=== PATIENT | male | born 1990 | race Caucasian/White ===

== ENCOUNTER 2022-11-20 18:29 | Emergency (ER) | payer MEDICAID ==
[~2022-11-20] VITALS: Ht 188 cm; Wt 90.7 kg
--- NOTE | 2022-11-20 19:02 | NUR ---
PT ARRIVED BECAUSE STOPED TAKING MEDS ALL AT ONCE AND BECAME MANIC. PT A/0 X4 NO S/S OF DISTRESS OF ANY KIND. Hx OF ANXIETY, ADHD, AND DEPRESSION. DOES NOT ENDORSE SUCIDAL IDEATION.
--- NOTE | 2022-11-20 20:57 | NUR ---
URINE SAMPLE COLLECTED AND SENT TO LAB
--- NOTE | 2022-11-20 20:58 | NUR ---
MRSA COLLECTED AND SENT TO LAB
--- NOTE | 2022-11-20 21:21 | NUR ---
BLOOD COLLECTED SENT TO LAB
[2022-11-20 21:44] LABS: BASOPHILS % (AUTO) 0.3 % (0.0-2.0); EOSINOPHILS % (AUTO) 0.9 % (0.0-6.0); HEMATOCRIT 44 % (39-51); HEMOGLOBIN 14.4 g/dL (13.5-17.5); LYMPHOCYTES # (AUTO) 2.2 K/uL (0.8-4.8); LYMPHOCYTES % (AUTO) 23.8 % (20.0-44.0); MEAN CORPUSCULAR HGB CONC 33 g/dl (31.0-36.0); MEAN CORPUSCULAR VOLUME 89 fL (80-96); MONOCYTES # (AUTO) 0.9 K/uL (0.1-1.30); MONOCYTES % (AUTO) 9.3 % (2.0-12.0); NEUTROPHILS % (AUTO) 65.7 % (43.0-81.0); PLATELET COUNT (AUTO) 290 K/uL (150-450); RED BLOOD CELL COUNT(AUTO) 4.91 MIL/uL (4.5-6.0); WHITE BLOOD COUNT (AUTO) 9.2 K/uL (4.3-11.0)
[2022-11-20 21:48] LABS: BILIRUBIN,URINE NEGATIVE (NEGATIVE); COLOR,URINE YELLOW (YELLOW); LEUKOCYTE ESTERASE ,URINE NEGATIVE (NEGATIVE); NITRITE, URINE NEGATIVE (NEGATIVE); PH,URINE 5.5 (5.0-8.0); UGLUCOSE NEGATIVE (NEGATIVE); UROBILINOGEN,URINE 0.2 EU/dL (0.2)
[2022-11-20 22:03] LABS: PROTEIN,URINE NEGATIVE (NEGATIVE)
[2022-11-20 22:12] LABS: CALCIUM, SERUM 9.2 mg/dL (8.5-10.1); CARBON DIOXIDE 28 mmol/L (21-32); CHLORIDE 103 mmol/L (98-107); CREATININE 1.3 mg/dL (0.6-1.3); GLUCOSE 97 mg/dL (74-106); POTASSIUM 3.9 mmol/L (3.5-5.1); SODIUM SERUM 140 mmol/L (136-145); UREA NITROGEN, BLOOD 18 mg/dL (7-18)
[2022-11-20 22:20] LABS: ALANINE AMINOTRANSFERASE 48 U/L (12-78); ALCOHOL, BLOOD < 3 mg/dL (0-0); ALKALINE PHOSPHATASE 63 U/L (46-116); ASPARTATE AMINOTRANSFERASE 18 U/L (15-37); BILIRUBIN,DIRECT 0.1 mg/dL (0.0-0.2); BILIRUBIN,TOTAL 0.5 mg/dL (0.2-1.0); TOTAL PROTEIN, SERUM 7.5 g/dL (6.4-8.2)
[2022-11-20 22:27] LABS: ACETAMINOPHEN < 10 ug/ml (10-30)
--- NOTE | 2022-11-20 23:21 | NUR ---
KIM- MOTHER [phone]
--- NOTE | 2022-11-20 23:24 | NUR ---
LESLYE - CRISIS FIELD HAULER PAGED
--- NOTE | 2022-11-21 01:57 | NUR ---
LESLYE AT BEDSIDE FOR EVAL.
--- NOTE | 2022-11-21 02:24 | NUR ---
Patient discharged to home in stable condition. Written and verbal after care instructions given. Patient verbalizes understanding of instruction.
[2022-11-21 02:25] VITALS: BP 127/71
== END 2022-11-21 02:26 | disposition home or self-care (01) ==
LOC: ER 18:31
DX: R45.851 Suicidal ideations (principal); F32.A Depression, unspecified; Z60.2 Problems related to living alone; Z20.822 Contact with and (suspected) exposure to COVID-19
CPT/HCPCS: 99285; 85025; 80048; 80076; 81003; 36415; 87426; 80143; 80320; 80307; C9803; G0480